=== PATIENT | female | born 1960 | race Two or more races ===

== ENCOUNTER 2024-04-21 14:13 | Emergency (ER) | payer OTHER, BC ==
[~2024-04-21] VITALS: Ht 160 cm; Wt 77.1 kg
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
[2024-04-21] MEDS: CYCLOBENZAPRINE HCL 10 MG TABLET PO ONE (14:59)
[2024-04-21] MEDS: morPHINE 4 MG SYG IVP ONE (14:59)
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
--- NOTE | 2024-04-21 16:18 | HMCIMG ---
RIGHT SHOULDER RADIOGRAPHS -1 VIEWS INDICATION: Pain COMPARISON: None FINDINGS: Single AP view only. No fracture or dislocation identified. Acromioclavicular and glenohumeral alignments are well maintained. Visible portions of the right clavicle are intact. IMPRESSION: No evidence for fracture or dislocation.
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
[2024-04-21] MEDS ORDERED: CYCL7.5T27 PO (16:43)
[2024-04-21] MEDS ORDERED: ACET-66 PO (16:43)
[2024-04-21] MEDS ORDERED: IBUP-2076 PO (16:43)
[2024-04-21 17:09] VITALS: BP 119/58; PULSE 70; RESP 17; TEMP 98; O2SAT 98
== END 2024-04-21 17:15 | disposition home or self-care (01) ==
LOC: EDH 14:13
DX: S16.1XXA Strain of muscle, fascia and tendon at neck level, initial encounter (principal); M25.511 Pain in right shoulder; V89.2XXA Person injured in unspecified motor-vehicle accident, traffic, initial encounter; Y93.89 Activity, other specified; Y92.89 Other specified places as the place of occurrence of the external cause; Y99.8 Other external cause status
CPT/HCPCS: 99285; 72125; 96374; 71045; 73020; 72131; J2270